=== PATIENT | female | born 1950 | race African-American/Black ===

== ENCOUNTER 2016-07-30 13:52 | Inpatient (IN) | payer BC ==
[~2016-07-30] VITALS: Ht 165.1 cm; Wt 92.1 kg
--- NOTE | ~2016-07-30 | PR ---
[place], [place] PROGRESS NOTE NAME: LUNA JIM UNIT #: [id number] ROOM: 505 DOCTOR: DOROTHEA BOOTH MD,NEAL BIRTHDATE: [birth year] DOS: 08/06/2016 SUBJECTIVE: She has been still noted nonproductive cough. Denies symptoms of chest pain, abdominal pain. She is n.p.o. past midnight for bronchoscopy planned for today. OBJECTIVE: VITAL SIGNS: Normal temperature, respiratory rate 22, heart rate of 94, blood pressure 109/65-116/69. The pulse oxygen saturation of the patient recorded on 3 liters nasal cannula 94% saturation. HEENT: Showed no acute change. NECK: Supple. CARDIOVASCULAR: S1, S2 audible. LUNGS: The patient was noted without any wheezing or crackles. Breaths are noted decreased in the lower portion of the lungs with basilar crackles. ABDOMEN: Soft with moderate obesity, bowel sounds present. LABORATORY DATA: No labs were done today. IMPRESSION: The patient with persistent bilateral basilar area of atelectasis with acute infiltration and cough currently assessed the patient for bronchoscopy to be done today. PLAN OF TREATMENT: Continue the oxygen and bronchodilators. Continue antibiotics. Any changes in the medication management if necessary will be ordered after the bronchoscopy assessment. NEAL PIEDRA MD CM:PNTRANS [id number] NEAL BOOTH MD 08/06/16 1950 interface
--- NOTE | ~2016-07-30 | PR ---
[place], [place] PROGRESS NOTE NAME: LUNA JIM UNIT #: [id number] ROOM: 505 DOCTOR: LUCIAN LE BIRTHDATE: [birth year] DOS: SUBJECTIVE: The patient is a 66-year-old female who is being followed for community-acquired pneumonia, is currently on Rocephin. States she is feeling better, continues to have cough with clear sputum, some nausea. No diarrhea. No rash or itch. She has been afebrile. Does have some discomfort around her abdomen when she coughs. She does try to suppress her cough. CURRENT MEDICATIONS: Include Protonix, Mucinex, vitamin D, Claritin, Lovenox, Zocor, Tamiflu, Rocephin, Humalog, Ultram, Zofran, Xanax and albuterol. OBJECTIVE: VITAL SIGNS: Temperature 98.5, pulse 96, respirations 18, BP 145/87. LABORATORY DATA: Show creatinine of 0.66, yesterday's WBCs were down to 8.6, which is down from 18, platelets 172. PHYSICAL EXAMINATION: GENERAL: A 66-year-old female, in no acute distress. HEAD, EYES, EARS, NOSE AND THROAT: Normocephalic, no thrush. LUNGS: Diminished right base with rales. Respirations even and unlabored. HEART: Regular rhythm. No murmur appreciated. ABDOMEN: Soft, nontender. EXTREMITIES: No edema, deformity or cyanosis. SKIN: Warm, dry, free of rashes. ASSESSMENT: Community-acquired pneumonia and likely influenza. PLAN: She is to continue Rocephin and Tamiflu, could likely eventually be discharged with Levaquin. Case discussed with Dr. Reji Dumont. AUGUST REY EPSTEIN [place], [place] PROGRESS NOTE NAME: LUNA JIM UNIT #: [id number] ROOM: 505 DOCTOR: LUCIAN LEAUGUST BIRTHDATE: [birth year] REJI DUMONT MD CM:PNTRANS 99 31 EPSTEIN [facility] 08/04/16 0153 interface
--- NOTE | ~2016-07-30 | PR ---
[place], [place] PROGRESS NOTE NAME: LUNA JIM UNIT #: [id number] ROOM: 505 DOCTOR: DOROTHEA BOOTH MD,NEAL BIRTHDATE: [birth year] DOS: 08/07/2016 PULMONARY PROGRESS NOTE SUBJECTIVE: She has done very well for this patient after bronchoscopy. Coughing has been noted decreased, but not completely resolved. There were no symptoms of chest pain described. OBJECTIVE: VITAL SIGNS: For the patient which have been recorded shows a normal temperature, respiratory rate 18, heart rate 93, blood pressure ____/77, pulse oxygen saturation 3 liters nasal cannula was 98% saturation recorded. HEENT: Shows head was atraumatic. Eyes nonicterus. NECK: Supple. CARDIOVASCULAR: S1, S2 is audible. LUNGS: The patient was noted without any wheezing or crackles. ABDOMEN: Soft, nontender. LABORATORY DATA: Gram stain of the bronchial washing of the patient were noted as a few white blood cells, epithelial cells and gram-positive cocci in cluster, preliminary culture noted normal adri, final culture results were pending. Chest x-ray done this morning shows improvement in aeration of the lung. IMPRESSION: Improving acute bilateral pneumonia with acute on chronic hypoxic respiratory failure as well. Final culture results were pending, preliminary showing no growth. PLAN OF TREATMENT: The patient could be discharged home. She needs to be reassessed for the adjustment of the oxygen supplementation necessary in the home setting, previously patient has been using oxygen supplementation 2 liters nasal cannula. NEAL PIEDRA MD CM:PNTRANS 1504 [id number] NEAL BOOTH MD 08/08/16 0149 interface
--- NOTE | ~2016-07-30 | PROC NOTE ---
[place], [place] PROCEDURE NOTE NAME: LUNA JIM UNIT #: [id number] ROOM: 505 DOCTOR: DOROTHEA BOOTH MD,NEAL BIRTHDATE: [birth year] DOS: 08/06/2016 PROCEDURE PERFORMED: Fiberoptic bronchoscopy. PREOPERATIVE DIAGNOSES: Persistent bilateral pulmonary infiltration of the lower lung, not responding to current treatment with severe nonproductive cough. POSTOPERATIVE DIAGNOSES: Removal of multiple plugs and mucus endobronchial tree bilaterally. There were no endobronchial obstructive lesions. Secretions sent for the cultures and other appropriate needed testing. COMPLICATIONS: None. PROCEDURE DESCRIPTION: Informed consent obtained for the patient. The patient was brought to the OR and placed in supine position. Conscious sedation administered by the Anesthesia Department. After achieving proper sedation, airway introduced into the mouth. Bronchoscope advanced into the airway into laryngeal area. Epiglottis and vocal cords were seen. Symmetrical movement of the vocal cord was noted. The bronchoscope advanced to the vocal cord and tracheal lumen, which was noticed a small amount of scattered mucopurulent secretions in the tracheal lumen, which was suctioned out. Jackelyn noted sharp. Similar secretions present in endobronchial tree bilaterally. Right upper, right middle, right lower, left upper, lingular lower lobes. All the secretions suctioned out clear for this patient. Bronchial washings sent for appropriate cultures. Procedure well tolerated by the patient without any complications. Postoperative findings will be discussed with the patient once the patient recovers the effects of acute sedation. No major family members available to discuss the current findings. NEAL PIEDRA MD CM:PROCNOTE:PROCEDURE NOTE 1010 00 NEAL BOOTH MD
--- NOTE | ~2016-07-30 | PR ---
[place], [place] PROGRESS NOTE NAME: LUNA JIM UNIT #: [id number] ROOM: 505 DOCTOR: NEAL BAE MD BIRTHDATE: [birth year] DOS: 08/05/2016 SUBJECTIVE: She has been noted with intermittent coughing episode. The patient unable to expectorate any sputum. She denies any symptoms of chest pain or any abdominal pain. The shortness of breath of the patient has been resolving. Denies symptoms of abdominal pain. OBJECTIVE: VITAL SIGNS: For the patient which has been recorded showed the temperature of the patient was noted as normal. The respiratory rate of the patient recorded as 20. The heart rate of the patient was noted as 99, blood pressure 118/84. Pulse oxygen saturation of the patient recorded as 94% on 3 L nasal cannula. HEENT: Examination shows no acute change. NECK: Supple. CARDIOVASCULAR: S1, S2 is audible. LUNGS: The patient was noted without any wheezing or crackles at the present time. Breaths are noted decreased in the lower portion of the lungs bilaterally. ABDOMEN: Soft and nontender. LABORATORY DATA: The chest x-ray of the patient that was done yesterday shows basilar area of infiltration still noted. No other labs of the patient done this morning. IMPRESSION: The patient with severe coughing, which has been noted episodic nonproductive with area of basilar atelectasis and pulmonary infiltration. PLAN OF TREATMENT: The bronchoscopy assessment for the patient to be done in the morning because of severe coughing, which has been noted nonproductive and present for several times today, with earlier spell of coughing was described this morning. The risks and benefits of bronchoscopy has been discussed with the patient, and she was agreeable for the procedure. She will be made n.p.o. past night for bronchoscopy to be done tomorrow. [place], [place] PROGRESS NOTE NAME: LUNA JIM UNIT #: [id number] ROOM: 505 DOCTOR: NEAL BAE MD BIRTHDATE: [birth year] NEAL PIEDRA MD CM:PNTRANS 1200 25 NEAL BOOTH MD 08/05/161925 interface
--- NOTE | ~2016-07-30 | CON ---
[place], [place] REPORT OF CONSULTATION NAME: LUNA JIM UNIT #: [id number] ROOM: 505 DOCTOR: NEAL BAE MD BIRTHDATE: [birth year] DOS: 08/04/2016 The consultation was done for assessment of ongoing respiratory symptoms with acute pneumonia. HISTORY OF PRESENT ILLNESS: This 66-year-old -[place] female who has been admitted to the hospital. The patient suffers from acute symptoms of fatigue, tiredness and body aches. The patient stated that symptoms started about 3-4 days ago prior to the hospitalization. She has been complaining of symptoms of shortness of breath after that with increased cough as well. The coughing has been noted to be mostly nonproductive. She denies symptoms of chest pain with that. She denies symptoms of hemoptysis. The patient stated that she celebrated her birthday recently with her kids and eat from outside. She has been currently treated for her current medical management. REVIEW OF SYSTEMS: CONSTITUTIONAL: She does complain of symptoms of fatigue and tiredness without fever or chills. EYES: Denies any burning, redness, or tenderness. EARS, NOSE, THROAT SYMPTOMS: No sore throat. Denies any sore throat, hoarseness, otalgia, postnasal drainage. CARDIOVASCULAR: Denies anginal pain, edema or pain of the lower extremities. GASTROINTESTINAL: Denies dysphagia, nausea, vomiting, diarrhea, abdominal pain, hematemesis or melena. The patient was noted symptoms, nausea, vomiting and some abdominal pain on admission, which has been completely resolved at the present time. GENITOURINARY: Denies dysuria, suprapubic pain, hematuria. MUSCULOSKELETAL: Denies any acute joint pain, redness, or tenderness. SKIN: No lesions or rashes. MUSCULOSKELETAL: Pain for the patient, which has been described previously was resolved. There was no joint pain, redness, or tenderness. CENTRAL NERVOUS SYSTEM: Denies dysphagia. Denies any diplopia, headache, seizures or tingling sensation of the extremities. Remaining systems were reviewed with the patient, they were noted all negative. PAST MEDICAL HISTORY: The patient was reported as history of: 1. COPD. 2. Essential hypertension. 3. Gastroesophageal reflux. 4. Insulin requiring type 2 diabetes mellitus. 5. Obstructive sleep apnea disorder. PAST SURGICAL HISTORY: The patient was noted as; 1. Partial resection of the colon for the patient. 2. Appendectomy. 3. Cholecystectomy. 4. Complete hysterectomy. 5. Surgery of the knee and the shoulder. SOCIAL HISTORY: The patient denies any dependence on alcohol use or any illicit [place], [place] REPORT OF CONSULTATION NAME: LUNA JIM UNIT #: [id number] ROOM: [facility] DOCTOR: NEAL BAE MD BIRTHDATE: [birth year] drugs. She has been noted tobacco use, 2 packs of cigarettes per day that were discontinued many years ago as per patient, unable to tell me the exact duration of tobacco abstinence. She is and has 3 children. FAMILY HISTORY: The patient's father from complication related to lung cancer. Mother of an old age. HOME MEDICATIONS: Noted use of Ventolin HFA inhaler, Xanax, Toujeo subcutaneous shots, Trulicity shots, Zestril, loratadine, simvastatin, tramadol, Diovan and Humalog insulin. DRUG ALLERGIES: Reported; 1. PENICILLIN. 2. SULFA DRUGS. 3. CELEBREX. 4. CIMETIDINE. 5. METFORMIN. PHYSICAL EXAMINATION: GENERAL: This is a 66-year-old -[place] female who has been noted currently awake and alert without any distress. Height of the patient recorded 5 feet 5 inches, weight of 203 pounds, BMI was not calculated. VITAL SIGNS: For the patient, which has been recorded showed the temperature noted as normal in the last 48 hours. The temperature highest was noted on admission as 101.3 degrees Fahrenheit. The respiratory rate ranging between 18-20 at this time. Heart rate patient was recorded as 100-97, blood pressure 130/66-127/78. Pulse oxygen saturation of the patient recorded as 94% on 3 L nasal cannula. HEENT: Examination shows head was atraumatic. Eyes nonicterus. Moderate obesity. Decreased posterior pharyngeal space with high tongue base and crowding of soft tissue structures. CARDIOVASCULAR: S1, S2 is audible. LUNGS: Noted decreased breath sounds in the lower lungs. The patient with basilar crackles. There was no wheezing heard. ABDOMEN: Noted moderate obesity, bowel sounds present. EXTREMITIES: Shows no edema, clubbing, cyanosis. CENTRAL NERVOUS SYSTEM: Cranial nerves 2 through 12 intact. No focal deficits. MUSCULOSKELETAL: Without any acute deformities. SKIN: No lesions or rashes. LABORATORY DATA: CBC of the patient that was done on admission 07/30/2016, WBC count 16,000, hemoglobin 13.5, hematocrit 42.2, platelet count 198,000. Lactic acid noted on 07/30/2016 of 2.2. Influenza A and B nasal washing antigens were noted as negative. Lactic acid followup on the same day was noted 1.8. CK-MB and troponin for the patient, which were done 3 sets of the patient 07/30/2016, 07/31/2016 were all noted normal. Repeat CBC on 07/31/2016, WBC count 18.6, hemoglobin and hematocrit were normal. Platelet count was normal. PT, PTT for the patient noted normal on 07/31/2016. CMP of the patient on 07/31/2016, BUN 6, creatinine was normal, glucose 150. Remaining CMP was normal. CMP of the patient on admission on 07/30/2016, glucose 155, remaining CMP was completely [place], [place] REPORT OF CONSULTATION NAME: LUNA JIM UNIT #: [id number] ROOM: [facility] DOCTOR: SCARLETT BAE MDM BIRTHDATE: [birth year] normal. Urine culture for this patient shows no bacterial growth from admission on the 07/30/2016. Blood culture from the 07/30/2016 reported no bacterial growth on 2 sets as well. The CMP of the patient that were done yesterday was noted, glucose 178. Otherwise, normal CMP. CBC of the patient shows normal WBC count 6.9, hemoglobin 10.5, hematocrit 33.0, platelet count was normal yesterday as well. The patient underwent the workup for the current GI problem on the 07/30/2016 were reported as evidence of gastropathy for the patient with distal esophageal ulceration in the EGD and colonoscopy limited shows evidence of acute proctitis. The radiology data review was also done. CT scan of the abdomen and pelvis of 07/30/2016 was reported by the radiologist as without any acute processes seen. Small infiltration noted in the left lower lobe for this patient at that time. Hepatic steatosis of the patient was also described. Chest x-ray of the patient on the 07/30/2016 shows basilar area of infiltration in the left lower lung. Chest x-ray repeated on 07/31/2016 for the patient essentially shows multi-lumen catheter in place without any other changes. The patient had a CTA of the chest done on 07/31/2016 was reviewed shows there was no evidence of pulmonary embolism. Small pleural fluid was noted with basilar area of consolidation, infiltration, which has been noted increased larger on the left than the right lower lung. The chest x-ray of the patient that was obtained for the patient was noted with reduction of previous infiltration in the right lower lobe of a small pleural fluid infiltration is still noted, which were not completely resolved. IMPRESSION: 1. The patient who has been currently admitted to the hospital, symptom of myalgia, fever and acute sepsis. The patient currently treated for acute bilateral lower lobe pneumonia with streptococcal infection and also suspected diagnosis of the patient and management has been ordered by the Infectious Disease services for influenza infection with Tamiflu. Small pleural fluid for the patient, which has been noted is not amenable for any further intervention related to current acute bacterial pneumonia as well. 2. History of past tobacco use and chronic obstructive pulmonary disease was noted as well. 3. Overall debility and muscle deconditioning, which is resolving. PLAN OF TREATMENT: Continue antibiotics, bronchodilators. Ambulation of the patient would be assessed. If the patient does well, the patient may be considered discharge the patient in the home setting in the next 24 hours on oral medications. Other supportive therapy, plan of management and care. Usual treatment. Further treatment changes will be done for the patient based on the progression of the illness. Usual care, other plan of management. [place], [place] REPORT OF CONSULTATION NAME: LUNA JIM UNIT #: [id number] ROOM: [facility] DOCTOR: NEAL BAE MD BIRTHDATE: [birth year] NEAL PIEDRA MD CM:CONSTR:REPORT OF CONSULTATION 1142 08/04/16 2241 interface
--- NOTE | ~2016-07-30 | PROC NOTE ---
[place], [place] PROCEDURE NOTE NAME: LUNA JIM UNIT #: [id number] ROOM: 505 DOCTOR: EVANGELISTA AVILEZ DO BIRTHDATE: [birth year] DOS: 07/31/[address] Akhil Thompson's note. This is an addendum to the procedure note on 07/31/2016. I agree with the above documentation. The patient needed IV access. Central line was inserted under ultrasound guidance. Chest x-ray was obtained to confirm placement. I was present for the entirety of this procedure. EVANGELISTA AVILEZ DO CM:PROCNOTE:PROCEDURE NOTE [id number] EVANGELISTA AVILEZ DO
--- NOTE | ~2016-07-30 | PROC NOTE ---
[place], [place] PROCEDURE NOTE NAME: LUNA JIM UNIT #: [id number] ROOM: 505 DOCTOR: JOSELITO HOOD DO BIRTHDATE: [birth year] DOS: ATTENDING: Dr. Avilez. PROCEDURE: Right internal jugular central line. DESCRIPTION OF PROCEDURE: Timeout was completed, verifying correct patient, procedure, site, positioning. The patient was placed in a dependent position. The patient's right IJ was prepped and draped in the sterile fashion. A 1% lidocaine was used to anesthetize the surrounding area. Triple-lumen catheter was introduced into the right IJ using the Seldinger technique. Under ultrasound guidance, catheter was threaded smoothly over the guidewire, appropriate blood return was obtained in each tube and the tubes flushed appropriately. The patient's site was prepped and draped in a sterile fashion. Perfusion to distal extremity was checked and found to be adequate. Negligible blood loss. JOSELITO HOOD DO EVANGELISTA AVILEZ DO CM:PROCNOTE:PROCEDURE NOTE 1800 1832 JOSELITO HOOD DO
--- NOTE | ~2016-07-30 | PR ---
[place], [place] PROGRESS NOTE NAME: LUNA JIM UNIT #: [id number] ROOM: 505 DOCTOR: TIM ORO,REJI Bassett BIRTHDATE: [birth year] DOS: 08/02/2016 ADDENDUM I agree with the above plans as described. We will follow the patient up clinically and adjust accordingly. REJI DUMONT MD CM:PNTRANS 16 35 REJI DUMONT MD 08/02/161935 interface
--- NOTE | ~2016-07-30 | CON ---
[place], [place] REPORT OF CONSULTATION NAME: LUNA JIM UNIT #: [id number] ROOM: [facility] DOCTOR: JUD ORONANCYMORENITA BIRTHDATE: [birth year] DOS: 07/31/2016 The patient last seen on 07/31/2016. REASON FOR CONSULTATION: Severe sepsis, pneumonia. CONSULTING DOCTOR: Akhil Thompson DO HISTORY OF PRESENTING ILLNESS: This 66-year-old patient admitted with a chief complaint of feeling generalized body ache and fever for the last 3 days. She celebrated her birthday 3 days ago and had been shopping with her family for 2 days. She ate from outside. She had generalized body ache the following day, stayed home, took some pain medications, did not get better, after that she felt more nauseated and had abdominal pain and also right upper back pain. She thought she was coming down with a urinary infection, but she felt really sick and felt like vomiting and decided to come to the hospital. PAST MEDICAL HISTORY: Positive for history of COPD, GERD, hypertension, insulin-dependent diabetes mellitus, sleep apnea, hypertension. PAST SURGICAL HISTORY: History of colon resection, appendectomy, cholecystectomy, hysterectomy, knee surgery, shoulder surgery, . SOCIAL HISTORY: Past smoker, quit 10 years ago. Does not drink alcohol or use illicit drugs. FAMILY HISTORY: Father had lung cancer. ALLERGIES: SHE IS ALLERGIC TO PENICILLIN, SULFA, CELECOXIB, , METFORMIN, SULFAMETHOXAZOLE AND TRIMETHOPRIM. HOME MEDICATIONS AND CURRENT INPATIENT MEDICATIONS: Reviewed. REVIEW OF SYSTEMS: Pertinent review of systems otherwise negative unless otherwise specified in the HPI. PHYSICAL EXAMINATION: VITAL SIGNS: Showed a temperature of 99.9, heart rate of 110, blood pressure of 143/77, respiratory rate of 20, pulse ox of 95 on room air. GENERAL APPEARANCE: Awake, alert, oriented to time, place and person. No acute distress. HEENT: Oral cavity moist. NECK: Supple, no JVD, no lymphadenopathy. HEART: Regular rate, tachycardic, S1, S2 normal. No murmurs, gallops or rubs. LUNGS: Bibasilar crackles, left more than right. No wheezing. ABDOMEN: Soft, nontender, no distention. Bowel sounds heard. No CVA tenderness. No hepatosplenomegaly. EXTREMITIES: Warm to touch. No pedal edema. No wounds, thrush or ulcers. LABORATORY DATA: Reviewed. WBC of 16.1 on admission, 18.6 today, hemoglobin of [place], [place] REPORT OF CONSULTATION NAME: LUNA IJM UNIT #: [id number] ROOM: [facility] DOCTOR: CHARU RENNER MD BIRTHDATE: [birth year] 12, platelets 176. Chemistry showing BUN of 6 and creatinine of 0.66. Troponin 0.310.. Lactic acid was 2.2 on admission. Microbiology pending. Influenza type A and B rapid flu antigen test negative. UA was unremarkable except for some bacteriuria. CT abdomen and pelvis was unremarkable. Chest x-ray shows left lung consolidation. ASSESSMENT AND PLAN: 1. Severe sepsis, likely secondary to community-acquired pneumonia, rule out influenza B. Rapid flu is not very sensitive, only 50-70%. I would put her on empiric Tamiflu along with IV Rocephin 2 gm once daily. Would follow up urine culture since she had described some UTI like symptoms. She is also getting a CT chest in view of her tachycardia and shortness of breath to rule out pulmonary embolism. Her troponins are slightly elevated as well. I think it is reasonable to get a CTA to rule out PE, although her pretest probability is low. Follow up blood cultures also. 2. Troponin elevation and bibasilar crackles. I will get a proBNP. A 2D echo is already ordered. Thank you, Dr. Rivas, for this consult. I will continue to follow. Recommendations will be stop IV vancomycin and meropenem. Start IV Rocephin, put her on Tamiflu for 5 days. Follow up culture results and CTA of the chest and 2D echo. CHARU RENNER MD CM:CONSTR:REPORT OF CONSULTATION 1532 08/01/16 0451 interface
[~2016-07-30 13:52] MED LIST: ADOXA100 MG PO; ALBUTEROL0.09 MG/A2 IH; ANAPROX DS550 MG PO; ASPIRIN325 MG PO; BENADRYL25 MG PO; CLARITIN10 MG PO; CONCERTA36 MG; COREG CR10 MG PO; COZAAR50 MG PO; DOXYCYCLINE100 M2 PO; DULERA100 INH; GLIPIZIDE5 MG PO; INSULIN-HUMA100 U/ML SC; JANUVIA100 MG PO; KAPIDEX60 MG PO; LEVOFLOXACIN500 MG PO; LISINOPRIL5 MG PO; LOVASTATIN20 MG PO; MEDROL DOSEPAK4 MG PO; METFORMIN850 MG PO; MICARDIS80 MG PO; ONGLYZA2.5 MG PO; OXYCODONE/APAP1 TA8 PO; OXYCONTIN10 MG PO; PREDNICOT20 MG PO; REGLAN5 MG PO; ROBITUSSIN AC 10 MG/ PO; SYMBICORT1 AE1 IH; TRADJENTA PO; TRAMADOL HCL50 MG PO; ULTRAM50 MG PO; VALIUM2 MG PO; VICODIN 5/500 505 MG PO; XANAX0.25 MG PO; ZOFRAN ODT8 MG PO; Zestril,Prinivil5 MG PO
[2016-07-30 14:09] VITALS: BP 137/78
[2016-07-30] MEDS ORDERED: SIMVASTATIN20 MG PO (14:30)
[2016-07-30] MEDS ORDERED: VALSARTAN160 MG PO (14:31)
[2016-07-30] MEDS ORDERED: TOUJEO300 U/ML SC (14:34)
[2016-07-30] MEDS ORDERED: HUMALOG100 UNIT/1 SC (14:36)
[2016-07-30] MEDS ORDERED: GOOD NEIGHBOR L10 MG PO (14:38)
[2016-07-30] MEDS ORDERED: NOVAPLUS V0.09 MG/Ac INH (14:38)
[2016-07-30] MEDS ORDERED: TRAMADOL HCL50 MG PO (14:38)
[2016-07-30 14:47] LABS: BASO % 0.2 % (0.0-1.0); EOS # 0.1 10*3/uL (0.0-0.4); EOS % 0.4 % (1.0-4.0); HEMATOCRIT 42.2 % (37.0-47.0); HEMOGLOBIN 13.5 g/dl (12.0-16.0); IG # 0.1 10*3/uL (0.0-0.1); LYMPH # 2.7 10*3/uL (1.3-4.4); LYMPH % 16.7 % (27.0-41.0); MEAN CELL VOLUME 84.6 fl (81.0-99.0); MEAN CORPUSCULAR HGB 27.1 pg (27.0-31.0); MEAN PLATELET VOLUME 9.4 fl (9.6-12.3); MONO # 0.8 10*3/uL (0.1-1.0); MONO % 5.2 % (3.0-9.0); NEUT # 12.4 10*3/uL (2.3-7.9); NEUT % 77.1 % (47.0-73.0); PLATELET COUNT AUTOMATED 198 10*3/uL (130-400); RED BLOOD COUNT 4.99 10*6/uL (4.10-5.10); RED CELL DISTRI WIDTH 13.8 % (0-14.5); WHITE BLOOD COUNT 16.1 10*3/uL (4.8-10.8)
[2016-07-30 15:03] LABS: ALBUMIN 3.7 gm/dl (3.1-4.5); ALKALINE PHOSPHATASE 97 U/L (45-117); BILIRUBIN, TOTAL 0.5 mg/dl (0.2-1.0); BUN 8 mg/dl (7-24); CARBON DIOXIDE 28 mmol/L (21-32); CHLORIDE 99 mmol/L (98-107); EST GLOM FILT AFRICAN AMERICAN > 60 ml/min; GLUCOSE 155 mg/dL (65-99); POTASSIUM 4.1 mmol/L (3.5-5.1); SGOT/AST 14 IU/L (3-35); SGPT/ALT 21 U/L (12-78); SODIUM 136 mmol/L (136-145); TOTAL PROTEIN 7.9 gm/dL (6.4-8.2)
[2016-07-30 15:35] VITALS: BP 143/80
[2016-07-30 16:45] LABS: LA>2 REFLEX 2 HR DRAW NOW
[2016-07-30 16:52] LABS: BILIRUBIN NEGATIVE (NEGATIVE); BLOOD NEGATIVE (NEGATIVE); CLARITY SL CLOUDY (CLEAR); COLOR YELLOW (YELLOW); GLUCOSE NEGATIVE (NEGATIVE); KETONE NEGATIVE (NEGATIVE); LEUKO ESTERASE NEGATIVE (NEGATIVE); NITRITE NEGATIVE (NEGATIVE); PROTEIN NEGATIVE (NEGATIVE); SPECIFIC GRAVITY <= 1.005 (1.005-1.030); UROBILINOGEN 0.2 E.U./dl (0.2-1.0)
[2016-07-30 16:55] VITALS: BP 126/76
[2016-07-30 16:59] LABS: BACTERIA 3+; RBC 0-2 rbc/hpf (0-2); URINE REFLEX COMMENT YES (NO)
[2016-07-30 17:07] VITALS: BP 128/70
[2016-07-30 18:51] VITALS: BP 143/85
[2016-07-30 20:00] VITALS: BP 114/85
[2016-07-31] VITALS: BP 98/55
[2016-07-31 06:26] LABS: BASO % 0.1 % (0.0-1.0); EOS % 0.2 % (1.0-4.0); HEMATOCRIT 37.1 % (37.0-47.0); IG # 0.1 10*3/uL (0.0-0.1); LYMPH # 2.3 10*3/uL (1.3-4.4); LYMPH % 12.3 % (27.0-41.0); MEAN CORPUSCULAR HGB 26.8 pg (27.0-31.0); MEAN CORPUSCULAR HGB CONC 32.3 g/dl (33.0-37.0); MEAN PLATELET VOLUME 9.3 fl (9.6-12.3); MONO # 0.9 10*3/uL (0.1-1.0); MONO % 5.1 % (3.0-9.0); NEUT # 15.2 10*3/uL (2.3-7.9); NEUT % 81.8 % (47.0-73.0); PLATELET COUNT AUTOMATED 176 10*3/uL (130-400); RED BLOOD COUNT 4.47 10*6/uL (4.10-5.10); WHITE BLOOD COUNT 18.6 10*3/uL (4.8-10.8)
[2016-07-31 06:51] LABS: HEMOGLOBIN A1c 9.8 % (4.8-5.6)
[2016-07-31 07:04] LABS: INTERNATIONAL NORM RATIO 1.1 (2.0-3.5); PROTHROMBIN TIME 11.6 SECONDS (9.0-12.4)
[2016-07-31 07:05] LABS: CHLORIDE 106 mmol/L (98-107); POTASSIUM 3.8 mmol/L (3.5-5.1); SODIUM 140 mmol/L (136-145)
[2016-07-31 07:28] LABS: ALKALINE PHOSPHATASE 80 U/L (45-117); BILIRUBIN, TOTAL 0.7 mg/dl (0.2-1.0); BUN 6 mg/dl (7-24); CARBON DIOXIDE 23 mmol/L (21-32); CHOLESTEROL 111 mg/dL (<200); EST GLOM FILT AFRICAN AMERICAN > 60 ml/min; GLUCOSE 150 mg/dL (65-99); HDL CHOLESTEROL 54 mg/dl (40-60); LDL CHOLESTEROL 45 mg/dL (9-159); MAGNESIUM 1.8 mg/dL (1.5-2.1); PHOSPHOROUS 2.9 mg/dL (2.5-4.9); SGOT/AST 10 IU/L (3-35); SGPT/ALT 15 U/L (12-78); TOTAL PROTEIN 6.9 gm/dL (6.4-8.2); TRIGLYCERIDES 59 mg/dl (<150); VLDL CHOLESTEROL 12 mg/dL (6-40)
[2016-07-31 08:00] VITALS: BP 101/50
[2016-07-31 08:40] LABS: FOLIC ACID 23.34 ng/mL (>5.38); VITAMIN D, 25-HYDROXY 14.4 ng/mL (30-100)
[2016-07-31 12:00] VITALS: BP 90/56
[2016-07-31 14:20] VITALS: BP 143/77
[2016-07-31 16:00] VITALS: BP 150/75
[2016-07-31 20:00] VITALS: BP 150/78
[2016-08-01] VITALS: BP 143/86
[2016-08-01 04:00] VITALS: BP 109/70
[2016-08-01 08:00] VITALS: BP 114/72
[2016-08-01 09:04] LABS: BASO % 0.2 % (0.0-1.0); EOS # 0.1 10*3/uL (0.0-0.4); EOS % 1.6 % (1.0-4.0); HEMATOCRIT 33.8 % (37.0-47.0); HEMOGLOBIN 10.5 g/dl (12.0-16.0); IG # 0.1 10*3/uL (0.0-0.1); LYMPH # 1.5 10*3/uL (1.3-4.4); LYMPH % 16.9 % (27.0-41.0); MEAN CORPUSCULAR HGB 26.9 pg (27.0-31.0); MEAN CORPUSCULAR HGB CONC 31.1 g/dl (33.0-37.0); MEAN PLATELET VOLUME 10.4 fl (9.6-12.3); MONO # 0.5 10*3/uL (0.1-1.0); MONO % 5.6 % (3.0-9.0); NEUT # 6.4 10*3/uL (2.3-7.9); NEUT % 75.1 % (47.0-73.0); PLATELET COUNT AUTOMATED 172 10*3/uL (130-400); RED CELL DISTRI WIDTH 14.4 % (0-14.5); WHITE BLOOD COUNT 8.6 10*3/uL (4.8-10.8)
[2016-08-01 09:08] LABS: MEAN CELL VOLUME 86.7 fl (81.0-99.0)
[2016-08-01 12:00] VITALS: BP 120/62
[2016-08-01 16:00] VITALS: BP 144/81
[2016-08-01 20:00] VITALS: BP 112/75
[2016-08-02] VITALS: BP 132/90
[2016-08-02 06:47] LABS: EST GLOM FILT AFRICAN AMERICAN > 60 ml/min
[2016-08-02 08:00] VITALS: BP 150/84
[2016-08-02 12:00] VITALS: BP 149/79
[2016-08-02 16:00] VITALS: BP 145/87
[2016-08-02 20:00] VITALS: BP 124/89
[2016-08-03] VITALS: BP 115/79
[2016-08-03 06:05] LABS: BASO % 0.4 % (0.0-1.0); EOS # 0.2 10*3/uL (0.0-0.4); EOS % 3.5 % (1.0-4.0); HEMOGLOBIN 10.5 g/dl (12.0-16.0); IG # 0.1 10*3/uL (0.0-0.1); LYMPH # 1.5 10*3/uL (1.3-4.4); LYMPH % 22.2 % (27.0-41.0); MEAN CELL VOLUME 84.6 fl (81.0-99.0); MEAN CORPUSCULAR HGB 26.9 pg (27.0-31.0); MEAN CORPUSCULAR HGB CONC 31.8 g/dl (33.0-37.0); MEAN PLATELET VOLUME 9.6 fl (9.6-12.3); MONO # 0.4 10*3/uL (0.1-1.0); MONO % 6.2 % (3.0-9.0); NEUT # 4.6 10*3/uL (2.3-7.9); NEUT % 66.4 % (47.0-73.0); PLATELET COUNT AUTOMATED 188 10*3/uL (130-400); RED CELL DISTRI WIDTH 13.9 % (0-14.5); WHITE BLOOD COUNT 6.9 10*3/uL (4.8-10.8)
[2016-08-03 06:20] LABS: ALBUMIN 2.9 gm/dl (3.1-4.5); ALKALINE PHOSPHATASE 86 U/L (45-117); BILIRUBIN, TOTAL 0.3 mg/dl (0.2-1.0); BUN 8 mg/dl (7-24); CARBON DIOXIDE 30 mmol/L (21-32); CHLORIDE 102 mmol/L (98-107); EST GLOM FILT AFRICAN AMERICAN > 60 ml/min; GLUCOSE 178 mg/dL (65-99); POTASSIUM 3.8 mmol/L (3.5-5.1); SGOT/AST 18 IU/L (3-35); SGPT/ALT 24 U/L (12-78); SODIUM 139 mmol/L (136-145); TOTAL PROTEIN 6.7 gm/dL (6.4-8.2)
[2016-08-03 08:00] VITALS: BP 161/86
[2016-08-03 12:00] VITALS: BP 156/78
[2016-08-03 16:00] VITALS: BP 152/89
[2016-08-03 20:00] VITALS: BP 115/72
[2016-08-04] VITALS: BP 127/78
[2016-08-04 07:52] VITALS: BP 130/66
[2016-08-04 12:00] VITALS: BP 140/62
[2016-08-04 16:00] VITALS: BP 132/73
[2016-08-04 20:00] VITALS: BP 130/82; BP 96/66
[2016-08-05] VITALS: BP 114/76
[2016-08-05 08:00] VITALS: BP 118/88
[2016-08-05 12:00] VITALS: BP 130/68
[2016-08-05 16:00] VITALS: BP 104/54
[2016-08-05 20:00] VITALS: BP 114/82
[2016-08-06] VITALS (9 sets, daily range): BP systolic 86–137; BP diastolic 52–78
[2016-08-07] VITALS: BP 130/76
[2016-08-07 08:00] VITALS: BP 125/84
[2016-08-07 12:00] VITALS: BP 107/77
[2016-08-07] MEDS ORDERED: Percocet 325 MG1 TAB PO (14:53)
[2016-08-07] MEDS ORDERED: D-1000 185 MG-11 TAB PO (14:53)
[2016-08-07] MEDS ORDERED: LEVAQUIN750 M1 PO (14:53)
[2016-08-07 15:09] LABS: ACID FAST SPEC PROCESSING Concentration (.)
[2016-08-07 15:09] LABS: ORGANISM ID Not indicated. (.); SPECIMEN SOURCE Urine (.); STREPTOCOCCUS PNEUMONIAE AG Negative (Negative)
== END 2016-08-07 16:36 | disposition home or self-care (01) | DRG 871 ==
LOC: ED 13:52 → EDHOLD 17:09 → 5E 17:09 → 4E 17:28 → ICCU 07-31 14:02 → 5E 08-01 10:50
PROVIDERS: Family Medicine; Internal Medicine; Internal Medicine Critical Care Medicine; Physician Assistant; Student in an Organized Health Care Education/Training Program
PROC: 02H633Z Insertion of Infusion Device into Right Atrium, Percutaneous Approach (ICD-10-PCS; principal; 2016-07-30)
PROC: 0BC68ZZ Extirpation of Matter from Right Lower Lobe Bronchus, Via Natural or Artificial Opening Endoscopic (ICD-10-PCS; 2016-08-06)
PROC: 0BC38ZZ Extirpation of Matter from Right Main Bronchus, Via Natural or Artificial Opening Endoscopic (ICD-10-PCS; 2016-08-06)
PROC: 0BC98ZZ Extirpation of Matter from Lingula Bronchus, Via Natural or Artificial Opening Endoscopic (ICD-10-PCS; 2016-08-06)
PROC: 0BC48ZZ Extirpation of Matter from Right Upper Lobe Bronchus, Via Natural or Artificial Opening Endoscopic (ICD-10-PCS; 2016-08-06)
PROC: B244ZZZ Ultrasonography of Right Heart (ICD-10-PCS; 2016-08-06)
PROC: 0BC88ZZ Extirpation of Matter from Left Upper Lobe Bronchus, Via Natural or Artificial Opening Endoscopic (ICD-10-PCS; 2016-08-06)
DX: A41.9 Sepsis, unspecified organism (principal); J18.9 Pneumonia, unspecified organism; J96.21 Acute and chronic respiratory failure with hypoxia; E87.2 Acidosis; E44.0 Moderate protein-calorie malnutrition; J44.0 Chronic obstructive pulmonary disease with (acute) lower respiratory infection; R65.20 Severe sepsis without septic shock; K21.9 Gastro-esophageal reflux disease without esophagitis; I10 Essential (primary) hypertension; E11.65 Type 2 diabetes mellitus with hyperglycemia; G47.33 Obstructive sleep apnea (adult) (pediatric); E55.9 Vitamin D deficiency, unspecified; J45.909 Unspecified asthma, uncomplicated; Z90.710 Acquired absence of both cervix and uterus; Z80.1 Family history of malignant neoplasm of trachea, bronchus and lung; Z90.49 Acquired absence of other specified parts of digestive tract; Z88.0 Allergy status to penicillin; Z88.1 Allergy status to other antibiotic agents; Z88.2 Allergy status to sulfonamides; Z79.4 Long term (current) use of insulin; Z79.899 Other long term (current) drug therapy; Z87.891 Personal history of nicotine dependence; Z88.8 Allergy status to other drugs, medicaments and biological substances

== ENCOUNTER → 2016-10-22 | Outpatient (CLI) | payer BC ==
[~2016-10-22] MED LIST changes: +D-1000 185 MG-11 TAB PO; +GOOD NEIGHBOR L10 MG PO; +HUMALOG100 UNIT/1 SC; +LEVAQUIN750 M1 PO; +NOVAPLUS V0.09 MG/Ac INH; +Percocet 325 MG1 TAB PO; +SIMVASTATIN20 MG PO; +TOUJEO300 U/ML SC; +VALSARTAN160 MG PO
== END ==
LOC: MAMMO 08:27
DX: Z12.31 Encounter for screening mammogram for malignant neoplasm of breast (principal)

== ENCOUNTER → 2017-07-22 | Outpatient (CLI) | payer BC ==
[~2017-07-22] MED LIST changes: +VENLAFAXINE37.5 M1 PO
--- NOTE | ~2017-07-22 | ST ---
[place], [place] EXERCISE STRESS TEST REPORT NAME: LUNA JIM [facility] #: [id number] UNIT #: [id number] ROOM: DOCTOR: YUMIKO EPSTEIN MD BIRTHDATE: [birth year] DOS: 07/22/2017 STRESS TEST REPORT REFERRING PHYSICIAN: [facility]. INDICATION: Dyspnea on exertion. The patient underwent standard Emir protocol exercise treadmill stress testing. Baseline EKG showed normal sinus rhythm, nonspecific ST-T wave changes. The patient's baseline heart rate was 97 with blood pressure of 166/70. The patient's peak heart rate was 141 with the blood pressure of 172/90. The patient's peak heart rate of 141 represents 90% of maximum predicted. The patient exercised for total of 2 minutes and 13 seconds on the treadmill. The patient had no chest pain, no EKG changes, no arrhythmias noted. SUMMARY OF FINDINGS: 1. Negative exercise treadmill to a low workload. The patient's Harden Treadmill score is 2.25, representing intermediate risk due to low workload. 2. Please see separate report for perfusion scan imaging results. YUMIKO EPSTEIN MD CM:STRESS:EXERCISE STRESS TEST REPORT 1404 1834 YUMIKO EPSTEIN MD
== END | disposition home or self-care (01) ==
LOC: CARD 01:59
DX: R06.02 Shortness of breath (principal); R06.00 Dyspnea, unspecified

== ENCOUNTER → 2018-11-30 | Outpatient (CLI) | payer BC | END | disposition home or self-care (01) | LOC: RAD 10:55 | DX: M16.12 Unilateral primary osteoarthritis, left hip (principal); M54.2 Cervicalgia ==

== ENCOUNTER 2019-05-05 18:57 | Emergency (ER) | payer BC ==
[~2019-05-05] VITALS: Ht 165.1 cm; Wt 86.2 kg
[2019-05-05] MEDS ORDERED: CELECOXIB200 M1 PO (19:10)
[2019-05-05] MEDS ORDERED: PRAVASTATIN SOD40 MG PO (19:10)
[2019-05-05 20:07] LABS: BILIRUBIN NEGATIVE (NEGATIVE); BLOOD TRACE-INTACT (NEGATIVE); CLARITY SL CLOUDY (CLEAR); COLOR YELLOW (YELLOW); GLUCOSE 3+ (NEGATIVE); KETONE NEGATIVE (NEGATIVE); LEUKO ESTERASE NEGATIVE (NEGATIVE); NITRITE NEGATIVE (NEGATIVE); PH 5.5 (5.0-9.0); UROBILINOGEN 0.2 E.U./dl (0.2-1.0)
[2019-05-05 20:25] LABS: BACTERIA 1+; EPITHELIAL CELLS 0-2; RBC 0-2 rbc/hpf (0-2)
[2019-05-05] MEDS ORDERED: DIFLUCAN150 MG PO (22:31)
[2019-05-05] MEDS ORDERED: KENALOG 0.1% OI15 GM T (22:31)
[2019-05-05] MEDS ORDERED: MONISTAT 745 GM V (22:31)
[2019-05-09 22:03] LABS: GONOCOCCUS BY NAA Negative (Negative)
== END 2019-05-05 22:19 | disposition home or self-care (01) ==
LOC: ED 18:57
PROVIDERS: Emergency Medicine
DX: B37.3 Candidiasis of vulva and vagina (principal); N39.0 Urinary tract infection, site not specified; J44.9 Chronic obstructive pulmonary disease, unspecified; I10 Essential (primary) hypertension; K21.9 Gastro-esophageal reflux disease without esophagitis; E11.9 Type 2 diabetes mellitus without complications; Z88.0 Allergy status to penicillin; Z88.2 Allergy status to sulfonamides; Z79.899 Other long term (current) drug therapy; Z79.2 Long term (current) use of antibiotics; Z79.4 Long term (current) use of insulin; Z90.49 Acquired absence of other specified parts of digestive tract; Z90.710 Acquired absence of both cervix and uterus; Z87.891 Personal history of nicotine dependence

== ENCOUNTER 2019-10-18 13:30 | Inpatient (IN) | payer BC ==
[2019-10-18] VITALS (7 sets, daily range): BP systolic 136–160; BP diastolic 66–83
[~2019-10-18] VITALS: Ht 165.1 cm; Wt 88.0 kg
[~2019-10-18 13:30] MED LIST changes: +CELECOXIB200 M1 PO; +DIFLUCAN150 MG PO; +KENALOG 0.1% OI15 GM T; +MONISTAT 745 GM V; +PRAVASTATIN SOD40 MG PO
[2019-10-18 14:35] LABS: BASO % 0.3 % (0.0-1.0); EOS # 0.1 10*3/uL (0.0-0.4); EOS % 0.9 % (1.0-4.0); HEMATOCRIT 44.2 % (37.0-47.0); LYMPH # 1.9 10*3/uL (1.3-4.4); LYMPH % 29.5 % (27.0-41.0); MEAN CELL VOLUME 85.8 fl (81.0-99.0); MEAN CORPUSCULAR HGB 27.8 pg (27.0-31.0); MEAN CORPUSCULAR HGB CONC 32.4 g/dl (33.0-37.0); MEAN PLATELET VOLUME 10.3 fl (9.6-12.3); MONO # 0.4 10*3/uL (0.1-1.0); MONO % 6.7 % (3.0-9.0); NEUT # 4.1 10*3/uL (2.3-7.9); NEUT % 62.3 % (47.0-73.0); PLATELET COUNT AUTOMATED 158 10*3/uL (130-400); RED BLOOD COUNT 5.15 10*6/uL (4.10-5.10); RED CELL DISTRI WIDTH 13.3 % (0-14.5); WHITE BLOOD COUNT 6.6 10*3/uL (4.8-10.8)
[2019-10-18 14:45] LABS: ACT PARTIAL THROMBO TIME 24.6 SECONDS (20.0-32.1); INTERNATIONAL NORM RATIO 0.9 (2.0-3.5)
[2019-10-18 14:50] LABS: ALBUMIN 3.6 gm/dl (3.1-4.5); ALKALINE PHOSPHATASE 94 U/L (45-117); BUN 12 mg/dl (7-24); CHLORIDE 104 mmol/L (98-107); CREATININE 0.81 mg/dL (0.55-1.02); LIPASE 103 U/L (73-393); POTASSIUM 4.3 mmol/L (3.5-5.1); SGOT/AST 21 IU/L (3-35); SGPT/ALT 22 U/L (12-78); SODIUM 134 mmol/L (136-145); TOTAL PROTEIN 7.5 gm/dL (6.4-8.2)
[2019-10-18 14:54] LABS: TROPONIN I < 0.015 ng/ml (<0.045)
--- NOTE | 2019-10-18 15:10 | NUR ---
REPORT RECIEVED FROM PREVIOUS RN AT THIS TIME
--- NOTE | 2019-10-18 15:32 | NUR ---
I AMBULATED PATIENT TO THE RESTROOM AND COLLECTED CLEAN CATCH UA
[2019-10-18] MEDS ORDERED: TOUJEO SOL300 UNIT/1 SQ (15:34)
[2019-10-18] MEDS ORDERED: ROSUVASTATIN CAL5 MG PO (15:35)
[2019-10-18] MEDS ORDERED: EXCEDRIN EXTRA1 EACH PO (15:35)
[2019-10-18] MEDS ORDERED: AMITRIPTYLINE H10 M1 PO (15:35)
[2019-10-18] MEDS ORDERED: IRBESARTAN75 M1 PO (15:36)
--- NOTE | 2019-10-18 15:36 | NUR ---
PATIENT IS VERY CONFUSED ON HER HOME MEDICATIONS, SHE STATES THAT SOMETIMES SHE TAKES HER MEDICATIONS AND SOMETIMES SHE DOES NOT.
--- NOTE | 2019-10-18 15:42 | NUR ---
UA SENT AT THIS TIME
[2019-10-18 16:02] LABS: CLARITY CLEAR (CLEAR); COLOR YELLOW (YELLOW); GLUCOSE 2+ (NEGATIVE)
[2019-10-18 16:03] LABS: BILIRUBIN NEGATIVE (NEGATIVE); BLOOD NEGATIVE (NEGATIVE); KETONE 1+ (NEGATIVE); LEUKO ESTERASE NEGATIVE (NEGATIVE); NITRITE NEGATIVE (NEGATIVE); SPECIFIC GRAVITY 1.015 (1.005-1.030); UROBILINOGEN 0.2 E.U./dl (0.2-1.0)
[2019-10-18 16:10] LABS: BACTERIA 2+
[2019-10-18 16:11] LABS: YEAST 2+
--- NOTE | 2019-10-18 16:26 | NUR ---
OK FOR PATIENT TO EAT PER DR. MOSS, HE IS AWARE OF HYPERGLYCEMIA
--- NOTE | 2019-10-18 17:12 | NUR ---
DR. YATES AT BEDSIDE
--- NOTE | 2019-10-18 17:18 | NUR ---
TO CT VIA CART, STILL WAITING FOR FOOD TRAY
--- NOTE | 2019-10-18 18:25 | NUR ---
A 69, admitted to 5E, under the services of EVANGELISTA Lane DO with a diagnosis of ALTERED MENTAL STATUS HYPERGLYCEMIA. Chief complaint is HYPERGLYCEMIA. Patient arrived via from ER. Monitor applied. Initial assessment completed. Vital signs taken and recorded. EVANGELISTA LANE DO notified of admission to the unit. Orders received. See assessment for past medical history, medications and allergies. Patient and/or family oriented to unit. [facility] visitation policy reviewed. Clothing/patient valuable form completed. JAYSHREE BHAGAT
--- NOTE | 2019-10-18 18:40 | NUR ---
MEDS RECONCILED WITH PT AT BEDSIDE. PT IS ALERT AND ORIENTED AND WAS ABLE TO VERIFY MEDS AGAINST CLAIM HISTORY.
--- NOTE | 2019-10-18 21:54 | NUR ---
DR. TORRE NOTIFIED OF CRITICAL BSG 458. AWARE SLIDING SCALE CALLS FOR 22 UNITS. INSTRUCTED TO GIVE 25 UNITS.
[2019-10-18 22:32] LABS: URINE AMPHETAMINES < 1000 (1000ng/ml); URINE BARBITURATES < 200 (200ng/ml); URINE BENZODIAZEPINES < 200 (200ng/ml); URINE CANNABINOIDS (THC) < 50 (50ng/ml); URINE COCAINE < 300 (300ng/ml); URINE METHADONE < 300 (300ng/ml); URINE OPIATES < 300 (300ng/ml)
[2019-10-18 22:35] LABS: URINE PHENCYCLIDINE < 25 (25ng/ml)
[2019-10-19] VITALS: BP 153/67
--- NOTE | 2019-10-19 02:06 | NUR ---
PT STATES SHE IS HUNGRY. BSG CHECKED-170. PT REQUESTING SALTINES AND PEANUT BUTTER, ALONG WITH DIET FLORENCIO MILLI. SNACKS PROVIDED PER REQUEST. PT EDUCATED ABOUT 1800 ADA DIET. VERBALIZES UNDERSTANDING. WILL MONITOR. CALL LIGHT IN REACH.
[2019-10-19 06:34] LABS: BASO % 0.5 % (0.0-1.0); EOS # 0.1 10*3/uL (0.0-0.4); EOS % 1.2 % (1.0-4.0); HEMATOCRIT 42.4 % (37.0-47.0); LYMPH # 2.9 10*3/uL (1.3-4.4); LYMPH % 37.5 % (27.0-41.0); MEAN CELL VOLUME 85.5 fl (81.0-99.0); MEAN CORPUSCULAR HGB 27.2 pg (27.0-31.0); MEAN CORPUSCULAR HGB CONC 31.8 g/dl (33.0-37.0); MEAN PLATELET VOLUME 10.2 fl (9.6-12.3); MONO # 0.5 10*3/uL (0.1-1.0); MONO % 6.8 % (3.0-9.0); NEUT # 4.1 10*3/uL (2.3-7.9); NEUT % 53.6 % (47.0-73.0); PLATELET COUNT AUTOMATED 161 10*3/uL (130-400); RED BLOOD COUNT 4.96 10*6/uL (4.10-5.10); RED CELL DISTRI WIDTH 13.3 % (0-14.5); WHITE BLOOD COUNT 7.6 10*3/uL (4.8-10.8)
[2019-10-19 06:54] LABS: BUN 12 mg/dl (7-24); CHLORIDE 107 mmol/L (98-107); CHOLESTEROL 194 mg/dL (<200); CREATININE 0.62 mg/dL (0.55-1.02); FREE T4 1.04 ng/dl (0.76-1.46); HDL CHOLESTEROL 34 mg/dl (40-60); LDL CHOLESTEROL 109 mg/dL (9-159); POTASSIUM 3.9 mmol/L (3.5-5.1); SODIUM 137 mmol/L (136-145); TRIGLYCERIDES 254 mg/dl (<150); VLDL CHOLESTEROL 51 mg/dL (6-40)
[2019-10-19 08:00] VITALS: BP 108/72
[2019-10-19 08:57] LABS: VITAMIN D, 25-HYDROXY 23.3 ng/mL (30-100)
--- NOTE | 2019-10-19 09:00 | NUR ---
Treasury Accountant in to talk to patient. Patient states lives at home with . There are no steps in the home. Physician: katelynn corcoran Pharmacy: [facility] Home health services: none at present Patient's level of ADLs: MINIMAL ASSIST Patient has working utilities: all working DME: cane Follow-up physician's appointment after d/c: will be made by hospitalist nruse director upon discharge Does patient want to access PORTAL?: no Discharge plan discussed with patient she states she lives at home with , she uses a cane for ambulation. she states her does the driving, then patient began talking about off the subject conversation and became somewhat confused, case management/delinquency prevention social worker will contact patient's for a discharge plan. LOUANN MINER
--- NOTE | 2019-10-19 09:50 | NUR ---
IN TO SEE PATIENT.
--- NOTE | 2019-10-19 10:15 | NUR ---
Occupational Therapy evaluation completed on five with full evaluation to follow. Recommend occupational therapy per plan of care and Home with HH SN, OT, and PT with continued family assist upon discharge. Thank you for this referral. Chelo Weber OTR/L
--- NOTE | 2019-10-19 10:30 | NUR ---
JCARLOS CALLED AT THIS TIME REGARDING 'S CONSULT.
--- NOTE | 2019-10-19 10:53 | NUR ---
PATIENT REFUSING COVID SWAB AT THIS TIME. NOTIFIED. AWAITING EVAL FROM .
--- NOTE | 2019-10-19 11:30 | NUR ---
BSG 356. INSULIN GIVEN PER S/S. WILL CONTINUE TO MONITOR. IVF MAINTAINED PER ORDER.
[2019-10-19 12:00] VITALS: BP 133/59
--- NOTE | 2019-10-19 12:15 | NUR ---
OT NOTE Pt seen this date for 1:1 therapy session for 30 min. Upon arrival pt seated in recliner and was identified by name and . Pt stated she was experiencing pain in her left hip 4-5/10 and expressed that she had difficulty bending over to don/doff socks and shoes. Dagmar/MAGNOLIA educated and demonstrated pt on use of AE. Pt demonstrated ability to don socks w sock aid w good carry over and Mod verbal cues. Pt required Max A to use outside medical sales representative to doff socks w poor carry over and Max verbal cues. Pt required Max A to use long handled shoe horn to don shoes w Max verbal cues and poor carry w poor problem solving skills. At end of session, pt left in recliner w body alarm activated and call light within reach. Continue w recommended plan of care. Margarita Leavitt/KAREN Godfrey/Shayy
[2019-10-19 16:00] VITALS: BP 147/82
[2019-10-19 20:00] VITALS: BP 130/68
[2019-10-20] VITALS: BP 128/63
--- NOTE | 2019-10-20 07:49 | NUR ---
PHYSICAL THERAPY IN TO SEE PATIENT AT THIS TIME. WILL ATTEMPT COVID SWAB AFTER THEY ARE DONE. BSG 183. 3 UNITS OF INSULIN GIVEN PER S/S. WILL MONITOR. CALL LIGHT WITHIN REACH.
--- NOTE | 2019-10-20 07:55 | NUR ---
PHYSICAL THERAPY Patient seen this am 1;1 for therapy visit and was just awakening supine in bed upon therapist arrival. Patient identified by name / , reporting no c/o's pain and only a little L hip stiffness. OT grants assistant was also present this morning for observation as patient transfers supine to sit EOB, then sit to stand with CGA x1. Patient ambulates, use of st cane, CGA, 15'x 1 to bathroom, demonstrating very slow, cautious gait pattern. Patient ambulated additional 20'x 1, ad antonino in room to bedside chair and remained with call light, tray table, telephone and body alarm for safety. Will continue per POC as tolerated, total treatment time 17 minutes. Rajesh Arriola, BUMP GRADER OPERATOR
[2019-10-20 08:00] VITALS: BP 110/60
--- NOTE | 2019-10-20 08:10 | NUR ---
OT NOTE Pt was seen this A.M. 1:1 for 25 minute OT session. Upon arrival pt was supine in bed. Pt identified by name and and had complaints of L hip pain which she did not rate on 0-10 pain scale. Pt transferred supine to sit EOB with CGA. Sit to stand completed from bed level with CGA and use of straight cane for UE support followed by functional mobility to the bathroom with CGA and use of straight cane. There she transferred on/off standard commode with CGA and use of grab bar for UE support. Clothing management completed with CGA. Pt then stood sink side while washing her hands with CGA for safety. Functional mobility was then completed back to the recliner. Throughout all mobility and tasks pt required mod verbal prompts for safety awarness and slowing down due to being impulsive. While seated in the recliner pt doffed B socks with use of the history professor with SBA. Donned B socks with use of the sock aid and SBA requiring one verbal prompt for inital start of sequencing. Also donned B tennis shoes with use of shoe horn requiring modA to complete due to poor technique and sequencing. Pt was left sitting upright in the recliner with call light in hand, tray table in place, and body alarm activated for safety. Continue with rec D/C plan to home with home health. KAREN Gu/Shayy
--- NOTE | 2019-10-20 09:04 | NUR ---
MATERIALS MGMT TECH ATTEMPTED TO REACH , NO VOICEMAIL AVALIABLE AT HOME NUMBER LISTED. MATERIALS MGMT TECH CALLED WORK PHONE AND LEFT A VOICEMAIL ASKING FOR A RETURN CALL. WILL ATTEMPT 1 MORE TIME THEN WILL CONTACT APS. MATERIALS MGMT TECH RECEIVED GUARDIANSHIP PAPERS.
--- NOTE | 2019-10-20 09:22 | NUR ---
BEAMER HAND RECEIVED CALL BACK FROM PATIENTS . HE STATED HE WILL MAKE THE HEALTHCARE DECISION FOR THE PATIENT. HE STATED HE DOES NOT WANT HER TO GO A SNF AND IS UNDECIDED ABOUT HOME HEALTH. HE STATED HE WOULD SPEAK TO HER FIRST AND CALL BACK. BEAMER HAND TO FOLLOW.
--- NOTE | 2019-10-20 09:31 | NUR ---
PT MEDICATED WITH PO TYLENOL PER PRN ORDER FOR C/O HEADACHE. WILL MONITOR EFFECTIVENESS.
--- NOTE | 2019-10-20 09:33 | NUR ---
PT REQUESTED PO TYLENOL PER PRN ORDER FOR C/O HEADACHE. WILL MONITOR EFFECTIVENESS.
--- NOTE | 2019-10-20 10:00 | NUR ---
PATIENT REFUSING COVID SWAB TO BE DONE.
--- NOTE | 2019-10-20 11:10 | NUR ---
PT DRESSED AND REFUSING TO WEAR HEART MONITOR. PT STATES SHE IS GOING HOME. ON FLOOR AND NOTIFIED AT THIS TIME.
[2019-10-20 12:00] VITALS: BP 130/84
--- NOTE | 2019-10-20 14:19 | NUR ---
MACHINE DESIGN ENGINEER WENT TO TALK TO THE PATIENT AND HER PRESENT IN THE ROOM. MACHINE DESIGN ENGINEER EXPLAINED THE NEED FOR HOME HEALTH. THE PATIENT STATED " I FEEL LIKE BECAUSE I SAID FORGET MY MEDS SOMETIMES NOW I'M BEING TREATED LIKE I'M MENTAL." MACHINE DESIGN ENGINEER TRIED TO EXPLAIN THE NEED TO MAKE SURE SHE IS TAKING HER MEDICATION CORRECTLY. PATIENT AT FIRST WAS AGREEABLE TO HAVE HOME HEALTH 1X A WEEK. MACHINE DESIGN ENGINEER WENT TO GET A LIST OF HH AGENCIES. WHEN MACHINE DESIGN ENGINEER RETURNED PATIENTS TOLD MACHINE DESIGN ENGINEER HE WANTS TO MAKE AN APPOINTMENT WITH PCP AND HAVE A DETAILED LIST OF PATIENTS MEDICATIONS. MACHINE DESIGN ENGINEER EXPLAINED RN WOULD GO OVER THIS PRIOR TO DISCHARGE. MACHINE DESIGN ENGINEER ATTEMPTED TO SPEAK WITH THE PATIENTS IN THE HALLWAY. HE REFUSED. MACHINE DESIGN ENGINEER DID INFORM THE PATIENT VIA PHONE CALL THIS MORNING THAT THE PATIENT WAS DEEMED INCOMPETENT. MACHINE DESIGN ENGINEER SPOKE WITH RN HOSPITALIST COORDINATOR TANNER TO SEE IF A DOCTOR WOULD GO SPEAK WITH THE PATIENT AND PATIENTS ABOUT THIS.
--- NOTE | 2019-10-20 15:17 | NUR ---
case management faxed patient's information and order to [facility] to follow patient at home when discharged, informed [facility] that patient is discharged to day
--- NOTE | 2019-10-20 15:19 | NUR ---
INSTANT POTATO PROCESSOR CONTACTED APS AND MADE REFERRAL FOR NON COMPLIANCE WITH MEDICATION. INSTANT POTATO PROCESSOR EXPLAINED GUARDIANSHIP PAPERS HAVE BEEN COMPLETED FOR THE PATIENT BEING INCOMPETENT AND INSTANT POTATO PROCESSOR WILL STORE THEM.
--- NOTE | 2019-10-20 15:22 | NUR ---
Discharge instructions reviewed with patient/family. Patient receptive and verbalizes understanding. Follow-up care arranged. Written instructions given to patient/family. MARCO ANTONIO SEGOVIA.
--- NOTE | 2019-10-21 07:41 | NUR ---
PHYSICAL THERAPY CO-SIGN I approve of the Physical Therapy notes written above. Ayse Oscar PT
--- NOTE | 2019-10-21 07:46 | NUR ---
OCCUPATIONAL THERAPY CO-SIGN I approve of the Occupational Therapy notes written above. SPENSER CLARKE, OTR/L
--- NOTE | 2019-10-21 11:43 | NUR ---
STATION INSTALLER RECEIVED PHONE CALL FROM [facility]. STATION INSTALLER PROVIDED INFORMATION ON PATIENTS STAY. [facility] ASKED FOR CLINICAL INFORMATION TO BE FAXED TO HER. STATION INSTALLER FAXED CLINICAL INFORMAITON AND COPIES OF THE GUARDIANSHIP PAPER WORK TO BE REVIEW.
--- NOTE | 2019-10-27 09:02 | NUR ---
ANGEL ARREDONDO STATED THE PATIENT SHUT THE DOOR ON HER WHEN SHE ATTEMPTED TO SEE THE PATIENT AT HOME.
== END 2019-10-20 15:22 | disposition home or self-care (01) | DRG 689 ==
LOC: ED 13:30 → 5E 17:04 → EDHOLD 17:04 → 5E 17:35
PROVIDERS: Emergency Medicine; Internal Medicine; ADMIT Internal Medicine
DX: N30.00 Acute cystitis without hematuria (principal); G93.41 Metabolic encephalopathy; E87.1 Hypo-osmolality and hyponatremia; E11.65 Type 2 diabetes mellitus with hyperglycemia; I10 Essential (primary) hypertension; J43.9 Emphysema, unspecified; K21.9 Gastro-esophageal reflux disease without esophagitis; B37.3 Candidiasis of vulva and vagina; G47.30 Sleep apnea, unspecified; R41.9 Unspecified symptoms and signs involving cognitive functions and awareness; R79.82 Elevated C-reactive protein (CRP); Z79.4 Long term (current) use of insulin; Z90.49 Acquired absence of other specified parts of digestive tract; Z90.710 Acquired absence of both cervix and uterus; Z87.891 Personal history of nicotine dependence; Z80.1 Family history of malignant neoplasm of trachea, bronchus and lung; Z88.0 Allergy status to penicillin; Z88.2 Allergy status to sulfonamides; Z88.8 Allergy status to other drugs, medicaments and biological substances; Z79.82 Long term (current) use of aspirin; Z79.899 Other long term (current) drug therapy

== ENCOUNTER → 2020-04-09 | Outpatient (CLI) | payer BC ==
[~2020-04-09] MED LIST changes: +AMITRIPTYLINE H10 M1 PO; +EXCEDRIN EXTRA1 EACH PO; +IRBESARTAN75 M1 PO; +ROSUVASTATIN CAL5 MG PO; +TOUJEO SOL300 UNIT/1 SQ
== END | disposition home or self-care (01) ==
LOC: ORTHO 07:03
PROVIDERS: ATTEND Orthopaedic Surgery
DX: M16.12 Unilateral primary osteoarthritis, left hip (principal); M25.752 Osteophyte, left hip

== ENCOUNTER 2020-06-07 12:19 | Emergency (ER) | payer BC ==
[2020-06-07 13:20] LABS: BASO % 0.2 % (0.0-1.0); EOS # 0.2 10*3/uL (0.0-0.4); EOS % 1.7 % (1.0-4.0); HEMATOCRIT 41.2 % (37.0-47.0); LYMPH # 2.2 10*3/uL (1.3-4.4); LYMPH % 25.5 % (27.0-41.0); MEAN CELL VOLUME 84.3 fl (81.0-99.0); MEAN CORPUSCULAR HGB 26.4 pg (27.0-31.0); MEAN CORPUSCULAR HGB CONC 31.3 g/dl (33.0-37.0); MEAN PLATELET VOLUME 9.6 fl (9.6-12.3); MONO # 0.4 10*3/uL (0.1-1.0); MONO % 4.5 % (3.0-9.0); NEUT # 5.9 10*3/uL (2.3-7.9); NEUT % 67.6 % (47.0-73.0); PLATELET COUNT AUTOMATED 198 10*3/uL (130-400); RED BLOOD COUNT 4.89 10*6/uL (4.10-5.10); WHITE BLOOD COUNT 8.8 10*3/uL (4.8-10.8)
[2020-06-07 13:37] LABS: ALBUMIN 3.3 gm/dl (3.1-4.5); ALKALINE PHOSPHATASE 93 U/L (45-117); BUN 11 mg/dl (7-24); CHLORIDE 104 mmol/L (98-107); CPK 31 U/L (26-192); CREATININE 0.85 mg/dL (0.55-1.02); POTASSIUM 3.6 mmol/L (3.5-5.1); SGOT/AST 12 IU/L (3-35); SGPT/ALT 17 U/L (12-78); SODIUM 138 mmol/L (136-145); TOTAL PROTEIN 7.2 gm/dL (6.4-8.2)
[2020-06-07 13:40] LABS: TROPONIN I < 0.015 ng/ml (<0.045)
== END 2020-06-07 16:39 | disposition home or self-care (01) ==
LOC: ED 12:19
PROVIDERS: Emergency Medicine
DX: M25.552 Pain in left hip (principal); R20.2 Paresthesia of skin; M16.12 Unilateral primary osteoarthritis, left hip; I10 Essential (primary) hypertension; E11.9 Type 2 diabetes mellitus without complications; J44.9 Chronic obstructive pulmonary disease, unspecified; K21.9 Gastro-esophageal reflux disease without esophagitis; Z88.0 Allergy status to penicillin; Z88.2 Allergy status to sulfonamides; Z88.8 Allergy status to other drugs, medicaments and biological substances; Z79.4 Long term (current) use of insulin; Z79.899 Other long term (current) drug therapy; Z79.82 Long term (current) use of aspirin; Z90.49 Acquired absence of other specified parts of digestive tract; Z90.711 Acquired absence of uterus with remaining cervical stump; Z98.890 Other specified postprocedural states; Z96.652 Presence of left artificial knee joint; Z87.891 Personal history of nicotine dependence; W19.XXXA Unspecified fall, initial encounter; Y93.89 Activity, other specified; Y92.009 Unspecified place in unspecified non-institutional (private) residence as the place of occurrence of the external cause; Y99.8 Other external cause status

== ENCOUNTER 2021-03-20 23:33 | Emergency (ER) | payer BC ==
[~2021-03-20] VITALS: Ht 165.1 cm; Wt 80.5 kg
[2021-03-21 00:03] LABS: BASO % 0.3 % (0.0-1.0); EOS # 0.1 10*3/uL (0.0-0.4); EOS % 1.8 % (1.0-4.0); HEMATOCRIT 42.3 % (37.0-47.0); LYMPH # 2.8 10*3/uL (1.3-4.4); LYMPH % 45.6 % (27.0-41.0); MEAN CELL VOLUME 83.6 fl (81.0-99.0); MEAN CORPUSCULAR HGB 27.3 pg (27.0-31.0); MEAN CORPUSCULAR HGB CONC 32.6 g/dl (33.0-37.0); MEAN PLATELET VOLUME 10.4 fl (9.6-12.3); MONO # 0.5 10*3/uL (0.1-1.0); MONO % 7.4 % (3.0-9.0); NEUT # 2.7 10*3/uL (2.3-7.9); NEUT % 44.6 % (47.0-73.0); PLATELET COUNT AUTOMATED 191 10*3/uL (130-400); RED BLOOD COUNT 5.06 10*6/uL (4.10-5.10); RED CELL DISTRI WIDTH 13.3 % (0-14.5); WHITE BLOOD COUNT 6.1 10*3/uL (4.8-10.8)
[2021-03-21 00:18] LABS: ALBUMIN 3.5 gm/dl (3.1-4.5); ALKALINE PHOSPHATASE 93 U/L (45-117); BUN 12 mg/dl (7-24); CHLORIDE 100 mmol/L (98-107); CREATININE 0.91 mg/dL (0.55-1.02); POTASSIUM 4.2 mmol/L (3.5-5.1); SGOT/AST 14 IU/L (3-35); SGPT/ALT 22 U/L (12-78); SODIUM 133 mmol/L (136-145); TOTAL PROTEIN 7.6 gm/dL (6.4-8.2)
[2021-03-21 00:22] LABS: BILIRUBIN Negative (Negative); BLOOD Negative (Negative); CLARITY Clear (Clear); COLOR Yellow (Yellow); GLUCOSE 3+ (Negative); KETONE Negative (Negative); LEUKO ESTERASE Negative (Negative); NITRITE Negative (Negative); PH 5.5 (4.5-8.0); SPECIFIC GRAVITY >= 1.030 (1.001-1.030); UROBILINOGEN 0.2 E.U./dl (0.0-1.0)
[2021-03-21 00:31] LABS: RBC 16-20 rbc/hpf (0-2)
== END 2021-03-21 02:49 | disposition home or self-care (01) ==
LOC: ED 23:33
PROVIDERS: Internal Medicine
DX: B37.3 Candidiasis of vulva and vagina (principal); R73.9 Hyperglycemia, unspecified; Z88.0 Allergy status to penicillin; Z88.2 Allergy status to sulfonamides; Z88.8 Allergy status to other drugs, medicaments and biological substances; Z87.891 Personal history of nicotine dependence

== ENCOUNTER 2022-02-02 17:57 | Emergency (ER) | payer BC ==
[~2022-02-02] VITALS: Wt 87.5 kg
[2022-02-02] MEDS ORDERED: NAPROSYN500 MG PO (19:36)
== END 2022-02-02 21:33 | disposition home or self-care (01) ==
LOC: ED 17:57
DX: M54.32 Sciatica, left side (principal); Z87.891 Personal history of nicotine dependence; Z90.710 Acquired absence of both cervix and uterus; Z90.49 Acquired absence of other specified parts of digestive tract; Z88.0 Allergy status to penicillin; Z88.2 Allergy status to sulfonamides; Z88.8 Allergy status to other drugs, medicaments and biological substances; Z88.1 Allergy status to other antibiotic agents

== ENCOUNTER → 2022-03-20 | Outpatient (CLI) | payer BC ==
[~2022-03-20] MED LIST changes: +NAPROSYN500 MG PO
== END | disposition home or self-care (01) ==
LOC: MAMMO 13:28
PROVIDERS: ATTEND Physician Assistant
DX: Z12.31 Encounter for screening mammogram for malignant neoplasm of breast (principal)

== ENCOUNTER → 2022-04-21 | Outpatient (CLI) | payer BC | END | disposition home or self-care (01) | LOC: MRI 12:14 | PROVIDERS: ATTEND Nurse Practitioner Family | DX: I67.89 Other cerebrovascular disease (principal); I67.82 Cerebral ischemia; F03.B18 Unspecified dementia, moderate, with other behavioral disturbance ==

== ENCOUNTER 2022-04-25 16:54 | Emergency (ER) | payer BC ==
[~2022-04-25] VITALS: Wt 83.9 kg
[2022-04-25] MEDS ORDERED: CIPRODEX 0.3%-7.5 ML OT (18:50)
[2022-04-25] MEDS ORDERED: OMNICEF300 MG PO (18:50)
== END 2022-04-25 20:54 | disposition home or self-care (01) ==
LOC: ED 16:54
DX: H66.92 Otitis media, unspecified, left ear (principal); Z20.822 Contact with and (suspected) exposure to COVID-19; H60.502 Unspecified acute noninfective otitis externa, left ear; Z88.0 Allergy status to penicillin; Z88.2 Allergy status to sulfonamides; Z88.1 Allergy status to other antibiotic agents; Z88.8 Allergy status to other drugs, medicaments and biological substances; Z90.49 Acquired absence of other specified parts of digestive tract; Z90.710 Acquired absence of both cervix and uterus; Z98.890 Other specified postprocedural states; Z87.891 Personal history of nicotine dependence

== ENCOUNTER 2022-05-05 05:56 | Emergency (ER) | payer BC ==
[~2022-05-05 05:56] MED LIST changes: +CIPRODEX 0.3%-7.5 ML OT; +OMNICEF300 MG PO
[2022-05-05 08:11] LABS: BASO % 0.4 % (0.0-1.0); EOS # 0.1 10*3/uL (0.0-0.4); EOS % 1.5 % (1.0-4.0); HEMATOCRIT 40.1 % (37.0-47.0); LYMPH % 27.8 % (27.0-41.0); MEAN CELL VOLUME 83.9 fl (81.0-99.0); MEAN CORPUSCULAR HGB CONC 32.2 g/dl (33.0-37.0); MEAN PLATELET VOLUME 9.2 fl (9.6-12.3); MONO # 0.5 10*3/uL (0.1-1.0); MONO % 6.8 % (3.0-9.0); NEUT # 4.6 10*3/uL (2.3-7.9); NEUT % 62.9 % (47.0-73.0); PLATELET COUNT AUTOMATED 247 10*3/uL (130-400); RED BLOOD COUNT 4.78 10*6/uL (4.10-5.10); WHITE BLOOD COUNT 7.2 10*3/uL (4.8-10.8)
[2022-05-05 08:25] LABS: ALKALINE PHOSPHATASE 81 U/L (46-116); BUN 7 mg/dl (9-23); CHLORIDE 99 mmol/L (98-107); POTASSIUM 3.4 mmol/L (3.4-5.1); SGPT/ALT 10 U/L (10-49); TOTAL PROTEIN 7.3 gm/dL (6.0-8.0)
[2022-05-05] MEDS ORDERED: ONDANSETRON HYDR4 M1 PO (10:29)
== END 2022-05-05 10:32 | disposition home or self-care (01) ==
LOC: ED 05:56
PROVIDERS: Student in an Organized Health Care Education/Training Program
DX: J40 Bronchitis, not specified as acute or chronic (principal); Z88.0 Allergy status to penicillin; Z88.1 Allergy status to other antibiotic agents; Z88.8 Allergy status to other drugs, medicaments and biological substances; Z90.49 Acquired absence of other specified parts of digestive tract; Z90.710 Acquired absence of both cervix and uterus; Z98.890 Other specified postprocedural states; Z87.891 Personal history of nicotine dependence

== ENCOUNTER 2022-06-17 09:18 | Emergency (ER) | payer BC ==
[~2022-06-17] VITALS: Wt 79.4 kg
[~2022-06-17 09:18] MED LIST changes: +DIVALPROEX SOD125 MG PO; +MECLIZINE HCL25 M2 PO; +MEMANTINE HCL5 MG PO; +ONDANSETRON HYDR4 M1 PO; +RIVASTIGMINE1 EACH T; +TRULICITY0.75 MG/0. SC; +VITAMIN D31250 MC1 PO
[2022-06-17 10:31] LABS: BASO % 0.4 % (0.0-1.0); EOS # 0.1 10*3/uL (0.0-0.4); EOS % 1.9 % (1.0-4.0); HEMATOCRIT 40.5 % (37.0-47.0); LYMPH # 2.3 10*3/uL (1.3-4.4); MEAN CORPUSCULAR HGB 27.2 pg (27.0-31.0); MEAN CORPUSCULAR HGB CONC 31.6 g/dl (33.0-37.0); MEAN PLATELET VOLUME 9.1 fl (9.6-12.3); MONO # 0.5 10*3/uL (0.1-1.0); MONO % 6.9 % (3.0-9.0); NEUT # 4.4 10*3/uL (2.3-7.9); NEUT % 59.4 % (47.0-73.0); PLATELET COUNT AUTOMATED 190 10*3/uL (130-400); RED BLOOD COUNT 4.71 10*6/uL (4.10-5.10); RED CELL DISTRI WIDTH 14.6 % (0-14.5); WHITE BLOOD COUNT 7.4 10*3/uL (4.8-10.8)
[2022-06-17 10:47] LABS: BUN 10 mg/dl (9-23); CHLORIDE 102 mmol/L (98-107); POTASSIUM 3.9 mmol/L (3.4-5.1)
== END 2022-06-17 12:50 | disposition home or self-care (01) ==
LOC: ED 09:18
PROVIDERS: Internal Medicine
DX: R07.89 Other chest pain (principal); R00.2 Palpitations; Z88.0 Allergy status to penicillin; Z88.1 Allergy status to other antibiotic agents; Z88.8 Allergy status to other drugs, medicaments and biological substances; Z90.49 Acquired absence of other specified parts of digestive tract; Z90.710 Acquired absence of both cervix and uterus; Z98.890 Other specified postprocedural states; Z87.891 Personal history of nicotine dependence

== ENCOUNTER 2022-07-28 10:50 | Emergency (ER) | payer BC ==
[~2022-07-28] VITALS: Ht 157.4 cm; Wt 81.6 kg
[2022-07-28 12:03] LABS: BASO % 0.4 % (0.0-1.0); EOS # 0.1 10*3/uL (0.0-0.4); EOS % 1.4 % (1.0-4.0); HEMATOCRIT 41.1 % (37.0-47.0); LYMPH # 2.8 10*3/uL (1.3-4.4); LYMPH % 32.2 % (27.0-41.0); MEAN CORPUSCULAR HGB 27.8 pg (27.0-31.0); MEAN CORPUSCULAR HGB CONC 33.1 g/dl (33.0-37.0); MEAN PLATELET VOLUME 9.1 fl (9.6-12.3); MONO # 0.6 10*3/uL (0.1-1.0); MONO % 6.9 % (3.0-9.0); NEUT % 58.6 % (47.0-73.0); PLATELET COUNT AUTOMATED 255 10*3/uL (130-400); RED BLOOD COUNT 4.89 10*6/uL (4.10-5.10); RED CELL DISTRI WIDTH 14.5 % (0-14.5); WHITE BLOOD COUNT 8.5 10*3/uL (4.8-10.8)
[2022-07-28 12:21] LABS: ALKALINE PHOSPHATASE 92 U/L (46-116); BUN 11 mg/dl (9-23); CHLORIDE 101 mmol/L (98-107); LIPASE 33 U/L (12-53); POTASSIUM 4.2 mmol/L (3.4-5.1); SGPT/ALT 14 U/L (10-49); TOTAL PROTEIN 7.5 gm/dL (6.0-8.0)
[2022-07-28] MEDS ORDERED: OMEPRAZOLE MAGN20 MG PO (13:57)
== END 2022-07-28 14:31 | disposition home or self-care (01) ==
LOC: ED 10:50
PROVIDERS: Physician Assistant
DX: R07.89 Other chest pain (principal); K21.9 Gastro-esophageal reflux disease without esophagitis; I10 Essential (primary) hypertension; E11.9 Type 2 diabetes mellitus without complications; J44.9 Chronic obstructive pulmonary disease, unspecified; F03.92 Unspecified dementia, unspecified severity, with psychotic disturbance; I34.1 Nonrheumatic mitral (valve) prolapse; Z88.0 Allergy status to penicillin; Z88.2 Allergy status to sulfonamides

== ENCOUNTER 2022-07-30 20:05 | Emergency (ER) | payer BC ==
[~2022-07-30] VITALS: Ht 165.1 cm; Wt 72.6 kg
[~2022-07-30 20:05] MED LIST changes: +OMEPRAZOLE MAGN20 MG PO
== END 2022-07-30 22:08 | disposition home or self-care (01) ==
LOC: ED 20:05
DX: G89.29 Other chronic pain (principal); M25.562 Pain in left knee; M25.552 Pain in left hip; N64.4 Mastodynia; Z88.0 Allergy status to penicillin; Z88.2 Allergy status to sulfonamides; Z88.8 Allergy status to other drugs, medicaments and biological substances; Z90.49 Acquired absence of other specified parts of digestive tract; Z90.710 Acquired absence of both cervix and uterus; Z98.890 Other specified postprocedural states; Z87.891 Personal history of nicotine dependence

== ENCOUNTER 2022-08-02 19:43 | Inpatient (IN) | payer BC ==
[~2022-08-02] VITALS: Ht 165.1 cm; Wt 74.0 kg
[2022-08-02 19:51] VITALS: BP 114/65
[2022-08-02 20:12] LABS: BASO % 0.3 % (0.0-1.0); EOS # 0.1 10*3/uL (0.0-0.4); EOS % 0.9 % (1.0-4.0); HEMATOCRIT 40.1 % (37.0-47.0); LYMPH # 2.7 10*3/uL (1.3-4.4); LYMPH % 22.9 % (27.0-41.0); MEAN CELL VOLUME 84.1 fl (81.0-99.0); MEAN CORPUSCULAR HGB 27.5 pg (27.0-31.0); MEAN CORPUSCULAR HGB CONC 32.7 g/dl (33.0-37.0); MONO # 0.8 10*3/uL (0.1-1.0); MONO % 6.4 % (3.0-9.0); NEUT # 8.1 10*3/uL (2.3-7.9); PLATELET COUNT AUTOMATED 244 10*3/uL (130-400); RED BLOOD COUNT 4.77 10*6/uL (4.10-5.10); RED CELL DISTRI WIDTH 14.1 % (0-14.5); WHITE BLOOD COUNT 11.7 10*3/uL (4.8-10.8)
[2022-08-02] MEDS ORDERED: NEURONTIN300 MG PO (20:13)
[2022-08-02 20:24] LABS: INTERNATIONAL NORM RATIO 1.1 (2.0-3.5)
[2022-08-02 20:29] LABS: ALKALINE PHOSPHATASE 97 U/L (46-116); BUN 10 mg/dl (9-23); CHLORIDE 96 mmol/L (98-107); POTASSIUM 3.7 mmol/L (3.4-5.1); SGPT/ALT 11 U/L (10-49); TOTAL PROTEIN 7.8 gm/dL (6.0-8.0)
[2022-08-02 21:45] LABS: BILIRUBIN Negative (Negative); BLOOD Negative (Negative); CLARITY Clear (Clear); COLOR Yellow (Yellow); GLUCOSE Negative (Negative); KETONE 1+ (Negative); LEUKO ESTERASE Trace (Negative); NITRITE Negative (Negative); PH 5.5 (4.5-8.0); SPECIFIC GRAVITY 1.015 (1.001-1.030)
[2022-08-02 21:56] LABS: EPITHELIAL CELLS 21-30; RBC 0-2 rbc/hpf (0-2)
[2022-08-03 00:30] VITALS: BP 147/58
[2022-08-03 03:30] VITALS: BP 150/84
[2022-08-03 06:51] VITALS: BP 140/87
[2022-08-03 07:31] LABS: BASO % 0.3 % (0.0-1.0); EOS # 0.1 10*3/uL (0.0-0.4); EOS % 1.4 % (1.0-4.0); HEMATOCRIT 41.5 % (37.0-47.0); LYMPH # 2.5 10*3/uL (1.3-4.4); LYMPH % 25.5 % (27.0-41.0); MEAN CORPUSCULAR HGB CONC 31.8 g/dl (33.0-37.0); MEAN PLATELET VOLUME 9.1 fl (9.6-12.3); MONO # 0.6 10*3/uL (0.1-1.0); MONO % 6.2 % (3.0-9.0); NEUT # 6.4 10*3/uL (2.3-7.9); NEUT % 66.1 % (47.0-73.0); PLATELET COUNT AUTOMATED 230 10*3/uL (130-400); RED BLOOD COUNT 4.88 10*6/uL (4.10-5.10); RED CELL DISTRI WIDTH 14.2 % (0-14.5); WHITE BLOOD COUNT 9.7 10*3/uL (4.8-10.8)
[2022-08-03 07:50] LABS: ALKALINE PHOSPHATASE 94 U/L (46-116); BUN 9 mg/dl (9-23); CHLORIDE 97 mmol/L (98-107); POTASSIUM 3.3 mmol/L (3.4-5.1); SGPT/ALT 10 U/L (10-49); TOTAL PROTEIN 7.5 gm/dL (6.0-8.0)
[2022-08-03 08:35] VITALS: BP 153/90
[2022-08-03 12:00] VITALS: BP 131/65
[2022-08-03 16:00] VITALS: BP 139/70
[2022-08-04] VITALS: BP 107/67
[2022-08-04 06:58] LABS: BASO % 0.3 % (0.0-1.0); EOS # 0.2 10*3/uL (0.0-0.4); EOS % 1.6 % (1.0-4.0); HEMATOCRIT 40.6 % (37.0-47.0); LYMPH # 2.3 10*3/uL (1.3-4.4); LYMPH % 25.1 % (27.0-41.0); MEAN CELL VOLUME 83.7 fl (81.0-99.0); MEAN CORPUSCULAR HGB 26.8 pg (27.0-31.0); MEAN PLATELET VOLUME 9.3 fl (9.6-12.3); MONO # 0.6 10*3/uL (0.1-1.0); MONO % 5.9 % (3.0-9.0); NEUT # 6.2 10*3/uL (2.3-7.9); NEUT % 66.6 % (47.0-73.0); PLATELET COUNT AUTOMATED 237 10*3/uL (130-400); RED BLOOD COUNT 4.85 10*6/uL (4.10-5.10); RED CELL DISTRI WIDTH 14.2 % (0-14.5); WHITE BLOOD COUNT 9.3 10*3/uL (4.8-10.8)
[2022-08-04 07:18] LABS: BUN 9 mg/dl (9-23); CHLORIDE 98 mmol/L (98-107); POTASSIUM 3.4 mmol/L (3.4-5.1)
[2022-08-04 08:00] VITALS: BP 110/70
[2022-08-04 12:00] VITALS: BP 115/68
[2022-08-04 16:00] VITALS: BP 110/66
[2022-08-04 20:00] VITALS: BP 105/67
[2022-08-05] VITALS: BP 118/59
[2022-08-05 07:07] LABS: BASO % 0.3 % (0.0-1.0); EOS # 0.2 10*3/uL (0.0-0.4); EOS % 1.8 % (1.0-4.0); HEMATOCRIT 39.7 % (37.0-47.0); LYMPH # 2.4 10*3/uL (1.3-4.4); LYMPH % 25.3 % (27.0-41.0); MEAN CELL VOLUME 84.1 fl (81.0-99.0); MEAN CORPUSCULAR HGB 26.9 pg (27.0-31.0); MEAN PLATELET VOLUME 9.4 fl (9.6-12.3); MONO # 0.6 10*3/uL (0.1-1.0); MONO % 6.8 % (3.0-9.0); NEUT # 6.2 10*3/uL (2.3-7.9); NEUT % 65.2 % (47.0-73.0); PLATELET COUNT AUTOMATED 232 10*3/uL (130-400); RED BLOOD COUNT 4.72 10*6/uL (4.10-5.10); RED CELL DISTRI WIDTH 13.7 % (0-14.5); WHITE BLOOD COUNT 9.5 10*3/uL (4.8-10.8)
[2022-08-05 07:30] LABS: BUN 9 mg/dl (9-23); CHLORIDE 95 mmol/L (98-107); POTASSIUM 3.3 mmol/L (3.4-5.1)
[2022-08-05 08:00] VITALS: BP 162/74
[2022-08-05 12:00] VITALS: BP 102/62
[2022-08-05 16:00] VITALS: BP 113/83
[2022-08-05 20:00] VITALS: BP 139/84
[2022-08-06] VITALS: BP 131/68
[2022-08-06 08:00] VITALS: BP 131/79
[2022-08-06 11:14] LABS: BUN 8 mg/dl (9-23); CHLORIDE 99 mmol/L (98-107)
[2022-08-06 12:00] VITALS: BP 103/60
[2022-08-06 16:00] VITALS: BP 114/94
[2022-08-06 20:00] VITALS: BP 125/65
[2022-08-07] VITALS: BP 106/57
[2022-08-07 04:00] VITALS: BP 128/72
[2022-08-07 06:39] LABS: BASO # 0.1 10*3/uL (0.0-0.1); BASO % 0.6 % (0.0-1.0); EOS # 0.2 10*3/uL (0.0-0.4); EOS % 1.9 % (1.0-4.0); HEMATOCRIT 38.6 % (37.0-47.0); LYMPH # 2.2 10*3/uL (1.3-4.4); LYMPH % 27.4 % (27.0-41.0); MEAN CELL VOLUME 85.2 fl (81.0-99.0); MEAN CORPUSCULAR HGB 27.2 pg (27.0-31.0); MEAN CORPUSCULAR HGB CONC 31.9 g/dl (33.0-37.0); MEAN PLATELET VOLUME 9.3 fl (9.6-12.3); MONO # 0.6 10*3/uL (0.1-1.0); MONO % 7.2 % (3.0-9.0); NEUT # 5.1 10*3/uL (2.3-7.9); NEUT % 62.4 % (47.0-73.0); PLATELET COUNT AUTOMATED 217 10*3/uL (130-400); RED BLOOD COUNT 4.53 10*6/uL (4.10-5.10); RED CELL DISTRI WIDTH 13.7 % (0-14.5); WHITE BLOOD COUNT 8.1 10*3/uL (4.8-10.8)
[2022-08-07 08:00] VITALS: BP 138/73
[2022-08-07 12:00] VITALS: BP 139/76
[2022-08-07] MEDS ORDERED: METOPROLOL SUCC25 M2 PO (12:40)
[2022-08-07] MEDS ORDERED: ASPIRIN ADULT L81 M2 PO (12:40)
== END 2022-08-07 14:50 | DRG 641 ==
LOC: ED 19:43 → 4E 22:04 → EDHOLD 22:04 → 4E 08-03 07:33
PROVIDERS: Internal Medicine; Physician Assistant; Registered Nurse; Student in an Organized Health Care Education/Training Program; ADMIT Internal Medicine; ATTEND Internal Medicine
DX: E87.1 Hypo-osmolality and hyponatremia (principal); R55 Syncope and collapse; M54.32 Sciatica, left side; R29.6 Repeated falls; J45.909 Unspecified asthma, uncomplicated; G47.30 Sleep apnea, unspecified; I10 Essential (primary) hypertension; Z20.822 Contact with and (suspected) exposure to COVID-19; F03.90 Unspecified dementia, unspecified severity, without behavioral disturbance, psychotic disturbance, mood disturbance, and anxiety; K21.9 Gastro-esophageal reflux disease without esophagitis; E11.65 Type 2 diabetes mellitus with hyperglycemia; W18.39XA Other fall on same level, initial encounter; Y93.89 Activity, other specified; Y99.8 Other external cause status; Z90.710 Acquired absence of both cervix and uterus; Z90.49 Acquired absence of other specified parts of digestive tract; Z80.1 Family history of malignant neoplasm of trachea, bronchus and lung; Z88.2 Allergy status to sulfonamides; Z88.0 Allergy status to penicillin; Z88.8 Allergy status to other drugs, medicaments and biological substances; Z79.899 Other long term (current) drug therapy; Y92.009 Unspecified place in unspecified non-institutional (private) residence as the place of occurrence of the external cause